=== PATIENT | female | born 1945 | race Asian ===

== ENCOUNTER 2021-11-21 15:51 | Emergency (ER) | payer OTHER, MEDICAID, SELFPAY ==
[2021-11-21 15:57] VITALS: BP 137/52; PULSE 84; RESP 14; TEMP 36.8; O2SAT 99
--- NOTE | 2021-11-21 16:42 | ED.GENADUL_ITS ---
Discharge Plan Disposition Patient Disposition: HOME Condition: Stable Discharge Details Clinical Impression: Dog bite Primary Care Provider: Bella Raphael ED Provider: Janice Oliver Home Meds and New Rx's Prescriptions: New doxycycline hyclate 100 mg capsule 100 mg PO BID 10 Days Qty: 20 0RF Discharge Instructions Instructions: Animal Bite (ED) Additional Instructions: Take antibiotic as prescribed Recheck in 48 hours recommended Return with spreading redness greater than 1 to 2 inches, fever, chills, or should he have new or worsening complaints Be aware that for the antibiotic to work and will likely take 24 to 48 hours notice improvement Referrals: Bella Raphael [Primary Care Provider] - [facility] General Date/Time Provider Initiated Documentation: 11/21/21 16:07 . HPI Narrative: This 76-year-old female who is reportedly otherwise healthy was bitten by a dog on November 18 of the left leg. She presents today secondary to spreading redness. The dog is up-to-date on rabies vaccines reportedly. Her tetanus is up-to-date. She has slight pain to the area. She denies fever or chills. Related Data Home Medications Medication Instructions Recorded Confirmed doxycycline hyclate 100 mg capsule 100 mg PO BID 10 days #20 caps 11/21/21 Previous Rx's Medication Instructions Recorded doxycycline hyclate 100 mg capsule 100 mg PO BID 10 days #20 caps 11/21/21 Allergies Allergy/AdvReac Type Severity Reaction Status Date / Time No Known Allergies Allergy Unverified 11/21/21 15:59 General Stated Complaint: AnimalBite CHUCKIE: 4 Review of Systems Narrative: ROS obtained x7 and negative aside from indication in HPI PFSH All Active Problems (Updated 11/21/21 @ 16:44 by NARENDRA Chamorro) Dog bite (Acute) Social History Smoking/Tobacco Use Status: Never Smoking risk assessment performed?: Yes Drug use: Never Substance use type: does not use Do you feel safe at home: Yes Exam Const General: cooperative, comfortable and no acute distress Skin Full body images: 1. Erythema noted without crepitus, central bite fito noted, no lymphangitis, no abscess or fluctuance Neuro General: patient alert and patient oriented x3 Extrem Other: Please see above documentation, neurovascularly intact Course Vital Signs Vital signs: Vital Signs Temperature 36.8 C 11/21/21 15:57 Pulse 84 11/21/21 15:57 Respiratory Rate 14 11/21/21 15:57 Blood Pressure 137/52 L 11/21/21 15:57 Pulse Oximetry 99 11/21/21 15:57 Temperature 36.8 C 11/21/21 15:57 Temperature Source Temporal Artery Scan 11/21/21 15:57 Pulse 84 11/21/21 15:57 Respiratory Rate 14 11/21/21 15:57 Respiratory Effort Non-Labored 11/21/21 15:59 Blood Pressure 137/52 L 11/21/21 15:57 Blood Pressure Position Supine 11/21/21 15:57 Pulse Oximetry 99 11/21/21 15:57 Oxygen Delivery Method Room Air 11/21/21 15:57 Oxygen Flow Rate 0 11/21/21 15:57
== END 2021-11-21 16:55 | disposition home or self-care (01) ==
PROVIDERS: Emergency Provider Physician Assistant; PCP Nurse Practitioner Family
DX: S81.852A Open bite, left lower leg, initial encounter (principal); W54.0XXA Bitten by dog, initial encounter
CPT/HCPCS: 99283